=== PATIENT | male | born 1945 | race Two or more races ===

== ENCOUNTER 2017-07-27 06:12 | Day surgery (SDC) | payer OTHER | END 2017-07-27 11:32 | disposition home or self-care (01) | LOC: AMB-ENDOS 06:12 → CIR.AMB 14:00 | DX: D12.0 Benign neoplasm of cecum (principal) ==

== ENCOUNTER 2017-09-28 10:23 | Inpatient (IN) | payer OTHER ==
[~2017-09-28] VITALS: Ht 165.1 cm; Wt 77.6 kg
[2017-10-02] MEDS ORDERED: ATORVASTATIN CA20 MG PO (12:27)
[2017-10-02] MEDS ORDERED: JUNUMET PO (12:27)
[2017-10-02] MEDS ORDERED: ENALAPRIL MALEAT5 MG PO (12:28)
[2017-10-12] MEDS ORDERED: TYLENOL ARTHRI650 MG PO (13:03)
[2017-10-12] MEDS ORDERED: POLY119PG PO (13:03)
== END 2017-10-12 13:48 | disposition home or self-care (01) | DRG 331 ==
LOC: O/R 10-06 08:00 → SURH 10-06 08:00 → O/R 10-06 16:45 → SURH 10-12 13:48
PROVIDERS: Surgery
PROC: 07TC4ZZ Resection of Pelvis Lymphatic, Percutaneous Endoscopic Approach (ICD-10-PCS; 2017-10-06)
PROC: 0DTF4ZZ Resection of Right Large Intestine, Percutaneous Endoscopic Approach (ICD-10-PCS; principal; 2017-10-06 16:45)
DX: D12.0 Benign neoplasm of cecum (principal); I11.9 Hypertensive heart disease without heart failure; E11.9 Type 2 diabetes mellitus without complications; E78.4 Other hyperlipidemia